=== PATIENT | male | born 2000 | race Caucasian/White ===

== ENCOUNTER 2022-09-30 19:26 | Emergency (ER) | payer OTHER, SELFPAY ==
[2022-09-30] VITALS (9 sets, daily range): BP systolic 89–122; BP diastolic 32–66; PULSE 83–165; RESP 9–28; TEMP 36.3–36.8; O2SAT 92–96; BMI 19.3
[2022-09-30 20:21] LABS: MANUAL DIFF FLAG NO
[2022-09-30 20:23] LABS: Basophils Absolute Auto 0.1 X10*3/uL (0.0-0.2); Basophils Percent Auto 0.5 % (0-2); Eosinophils Absolute Auto 0.1 X10*3/uL (0.0-0.4); Eosinophils Percent Auto 0.6 % (0-4); Hematocrit 44.6 % (42.0-52.0); Hemoglobin 14.7 g/dl (14.0-18.0); Imm Gran Abs Auto 0.34 X10*3/uL (0.00-0.03); Lymphocytes Absolute Auto 3.1 X10*3/uL (1.2-4.9); Lymphocytes Percent Auto 17.8 % (20-40); Mean Corpuscular Hemoglobin 30.2 pg (27.0-33.0); Mean Corpuscular Volume 91.6 fL (80.0-98.0); Mean Platelet Volume 10.6 fL (9.4-12.4); Monocytes Percent Auto 5.9 % (2-11); Neutrophils Absolute Auto 12.5 x10*3/uL (2.0-8.3); Neutrophils Percent Auto 73.2 % (45-73); Platelet Count 234 X10*3/uL (160-400); Red Blood Count 4.87 X10*6/uL (4.60-5.80); Red Cell Distribution Width 12.3 % (11.0-16.0); White Blood Count 17.2 X10*3/uL (4.8-10.8)
[2022-09-30] MEDS: 0.9 % Sodium Chloride 1,000 ML 999 ML IV ×3 (20:23→21:09)
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
--- NOTE | 2022-09-30 20:29 | ECG_ITS ---
Test Reason : OD Blood Pressure : / mmHG Vent. Rate : 107 BPM Atrial Rate : 107 BPM P-R Int : 162 ms QRS Dur : 094 ms QT Int : 346 ms P-R-T Axes : 079 104 062 degrees QTc Int : 461 ms Sinus tachycardia Possible Left atrial enlargement Rightward axis Incomplete right bundle branch block Borderline ECG No previous ECGs available Referred By: Generic ED Physician Electronically Signed By:Maldonado Davenport
--- NOTE | 2022-09-30 20:35 | MHC.EDTECH ---
This tech brought patients clothes to be washed.
[2022-09-30 20:40] LABS: Acetaminophen LAB < 17 mcg/mL (<30); Alanine Aminotransferase 14 U/L (0-40); Albumin Level 5.1 g/dL (3.5-5.0); Alkaline Phosphatase 121 U/L (39-117); Anion Gap 25 (12-20); Aspartate Amino Transferase 30 U/L (5-37); Bilirubin Total 0.9 mg/dL (0.0-1.0); Blood Urea Nitrogen 25 mg/dL (9-16); Calcium 10.2 mg/dL (8.4-10.2); Carbon Dioxide 14 mmol/L (22-29); Chloride 107 mmol/L (96-108); Creatinine Clr Calc Pharmacy 51.5; Estimated Glomerular Filt Rate 50; Ethanol < 10 mg/dL; Glucose Random 96 mg/dL (60-115); Potassium 4.2 mmol/L (3.3-5.1); Salicylate < 5.0 mg/dL (15-30); Sodium 142 mmol/L (135-145); Total Protein 7.8 g/dL (6.5-8.0)
[2022-09-30 20:41] LABS: COVID-19 Test Negative (Negative); IDNOW Serial# 16C4AD1C
[2022-09-30] MEDS: Haloperidol Lactate 5 MG/ML VIAL 10 MG IM (21:09)
[2022-09-30] MEDS: diphenhydrAMINE HCL 50 MG/ML VIAL IM (21:10)
[2022-09-30] MEDS: LORazepam 2 MG/ML VIAL IM (21:11)
--- NOTE | 2022-09-30 21:11 | PC.NURSE ---
pt is sleeping at this time, Blood pressure is soft, provider is aware. Fluids ordered will continue to monitor. Notified HONEY Brooks.
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
[2022-10-01 00:09] LABS: Appearance Urine Clear; Color Urine Yellow; Glucose Urine UA Negative (Negative); Leukocyte Esterase Urine Negative (Negative); Nitrite Urine Negative (Negative); PH 5.5 (5.0-9.0); Specific Gravity - Urine 1.015 (1.005-1.025); UMIC TRIGGER UACC YES; Urine Blood Negative (Negative); Urine Ketones Trace mg/dL (Negative); Urine Protein 30 (1+) mg/dL (Neg-Trace)
[2022-10-01 00:11] LABS: Bacteria Urine None Seen (None Seen); RBC Urine 0-2 /HPF (0-2); Squamous Epithelial Cell Urine 0-2 /HPF (0-2); WBC Urine 0-5 /HPF (0-5)
[2022-10-01 00:16] LABS: Amphetamine Screen Urine Not Detected (Not Detect); Barbiturates, Urine Not Detected (Not Detect); Benzodiazepines Screen Urine Not Detected (Not Detect); Cannabinoid Screen Urine POSITIVE (Not Detect); Cocaine Screen Urine POSITIVE (Not Detect); Fentanyl, urine Not Detected (Not Detect); Opiate Screen Urine Not Detected (Not Detect); Phencyclidine Screen Urine Not Detected (Not Detect)
[2022-10-01 00:28] LABS: MANUAL DIFF FLAG NO
[2022-10-01 00:30] LABS: Basophils Percent Auto 0.2 % (0-2); Eosinophils Percent Auto 0.1 % (0-4); Hematocrit 38.1 % (42.0-52.0); Imm Gran Abs Auto 0.11 X10*3/uL (0.00-0.03); Imm Gran Pct Auto 0.7 % (0.0-0.4); Lymphocytes Absolute Auto 2.6 X10*3/uL (1.2-4.9); Mean Corpuscular HGB Conc 34.1 g/dl (31.0-36.0); Mean Platelet Volume 10.6 fL (9.4-12.4); Monocytes Absolute Auto 1.3 X10*3/uL (0.1-1.2); Monocytes Percent Auto 7.8 % (2-11); Neutrophils Absolute Auto 12.3 x10*3/uL (2.0-8.3); Neutrophils Percent Auto 75.2 % (45-73); Platelet Count 193 X10*3/uL (160-400); Red Blood Count 4.33 X10*6/uL (4.60-5.80); Red Cell Distribution Width 12.5 % (11.0-16.0); White Blood Count 16.3 X10*3/uL (4.8-10.8)
--- NOTE | 2022-10-01 00:45 | MHC.CARE ---
Consult requested by ED Provider due to Patient PCP use. Care Team met with Patient. Patient declined all services and Recovery supports.
[2022-10-01 01:01] LABS: Creatinine Clr Calc Pharmacy 75.5; Estimated Glomerular Filt Rate > 60
[2022-10-01 06:08] VITALS: BP 107/59; PULSE 80; RESP 17; O2SAT 95
--- NOTE | 2022-10-01 06:33 | PC.NURSE ---
Pt 's is leavening against medical advised and refused any further interventions. Pt's was a/o x4, and denies being SI and HI.
== END 2022-10-01 06:33 | disposition left against medical advice (07) ==
PROVIDERS: Physician Assistant; Emergency Provider Internal Medicine; PCP Nurse Practitioner Family
DX: F19.10 Other psychoactive substance abuse, uncomplicated (principal); R45.6 Violent behavior; R45.1 Restlessness and agitation; N17.9 Acute kidney failure, unspecified; M62.82 Rhabdomyolysis; F12.90 Cannabis use, unspecified, uncomplicated; Z78.1 Physical restraint status; Z20.822 Contact with and (suspected) exposure to COVID-19
CPT/HCPCS: 36415; 80053; 80143; 80179; 80307; 81001; 81003; 82077; 82550; 82565; 85025; 87635; 93005; 96360; 96361; 96372; 99285; J1200; J2060

== ENCOUNTER 2023-09-19 02:12 | Emergency (ER) | payer OTHER, SELFPAY ==
--- NOTE | ~2023-09-19 | CT_ITS ---
EXAMINATION: CT HEAD WITHOUT CONTRAST CT CERVICAL SPINE WITHOUT CONTRAST CLINICAL INFORMATION: EtOH. Altered mental status. Evaluate for fracture, hemorrhage. COMPARISON: None TECHNIQUE: Contiguous axial imaging was performed from the skull base to vertex without intravenous administration of contrast. Contiguous axial CT images of the cervical spine were obtained without contrast. Sagittal and coronal reformats were provided and reviewed. This CT examination was performed using dose optimization techniques as appropriate, variously including the following: *Automated exposure control *Adjustment of mA and/or kV according to patient size (this includes techniques or standardized protocols for targeted exams where dose is matched to indication/reason for exam; i.e. extremities or head) *Use of iterative reconstruction technique DLP: 1039 mGy-cm FINDINGS: HEAD: There is no evidence of acute intracranial hemorrhage or territorial infarction. No abnormal mass effect or midline shift is seen. Lamb to white matter differentiation is well preserved. No extra-axial fluid collections are identified. The ventricles are normal in size. There is no abnormal attenuation within the brain parenchyma. The osseous structures and soft tissues are normal. The mastoid air cells and visualized portions of the paranasal sinuses are well aerated. CERVICAL SPINE: Normal vertebral body alignment. The normal cervical lordosis is maintained. No acute fracture or subluxation. No loss of vertebral body or intervertebral disc height. Unremarkable facet joints. No lytic or blastic osseous lesion. Unremarkable prevertebral soft tissues. No abnormal soft tissue mass or fluid collection. Thyroid within normal limits. Visualized lung apices are clear. No significant central canal or neural foraminal stenosis. CT/CT cervical spine wo IV con IMPRESSION: HEAD: No acute intracranial hemorrhage or mass effect. CERVICAL SPINE: No acute fracture or subluxation.
[2023-09-19 02:21] VITALS: BP 160/100; PULSE 113; O2SAT 96; BMI 24.2
--- NOTE | 2023-09-19 02:26 | ECG_ITS ---
Test Reason : ETOH Blood Pressure : / mmHG Vent. Rate : 119 BPM Atrial Rate : 119 BPM P-R Int : 164 ms QRS Dur : 096 ms QT Int : 330 ms P-R-T Axes : 071 102 049 degrees QTc Int : 464 ms Sinus tachycardia Rightward axis Borderline ECG No previous ECGs available Referred By: Generic ED Physician Electronically Signed By:
[2023-09-19 02:31] LABS: Glucose, Whole Blood 107 mg/dL (60-115)
[2023-09-19 02:33] VITALS: BP 144/89; PULSE 110; RESP 16; TEMP 36.3; O2SAT 96
[2023-09-19 03:09] LABS: Appearance Urine Clear; Color Urine Yellow; Glucose Urine UA Negative (Negative); Leukocyte Esterase Urine Negative (Negative); Nitrite Urine Negative (Negative); Specific Gravity - Urine <= 1.005 (1.005-1.025); Urine Blood Negative (Negative); Urine Ketones Negative (Negative); Urine Protein Negative (Neg-Trace)
[2023-09-19 03:14] LABS: Amphetamine Screen Urine Not Detected (Not Detect); Barbiturates, Urine Not Detected (Not Detect); Benzodiazepines Screen Urine Not Detected (Not Detect); Cannabinoid Screen Urine POSITIVE (Not Detect); Cocaine Screen Urine POSITIVE (Not Detect); Fentanyl, urine Not Detected (Not Detect); Opiate Screen Urine Not Detected (Not Detect); Phencyclidine Screen Urine Not Detected (Not Detect)
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
[2023-09-19] MEDS: OLANZapine 10 MG TABLET PO (03:39)
[2023-09-19] MEDS: diphenhydrAMINE HCL 25 MG CAPSULE 50 MG PO (03:39)
--- NOTE | 2023-09-19 03:46 | PC.NURSE ---
Pt restless unable to sit still. Attempting to get out of bed and ambulate with unsteady gait. Not easily redirectable. 1:1 sitter at bedside. made aware.
[2023-09-19 04:56] LABS: Basophils Percent Auto 0.3 % (0-2); Hematocrit 44.9 % (42.0-52.0); Hemoglobin 15.3 g/dl (14.0-18.0); Imm Gran Abs Auto 0.03 X10*3/uL (0.00-0.03); Imm Gran Pct Auto 0.3 % (0.0-0.4); Lymphocytes Absolute Auto 2.2 X10*3/uL (1.2-4.9); Lymphocytes Percent Auto 22.2 % (20-40); MANUAL DIFF FLAG NO; Mean Corpuscular HGB Conc 34.1 g/dl (31.0-36.0); Mean Corpuscular Hemoglobin 29.8 pg (27.0-33.0); Mean Corpuscular Volume 87.5 fL (80.0-98.0); Monocytes Absolute Auto 0.5 X10*3/uL (0.1-1.2); Monocytes Percent Auto 5.2 % (2-11); Neutrophils Absolute Auto 7.2 x10*3/uL (2.0-8.3); Platelet Count 240 X10*3/uL (160-400); Red Blood Count 5.13 X10*6/uL (4.60-5.80); Red Cell Distribution Width 12.5 % (11.0-16.0); White Blood Count 9.9 X10*3/uL (4.8-10.8)
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
[2023-09-19 05:02] VITALS: RESP 14
[2023-09-19 05:11] LABS: Alanine Aminotransferase 21 U/L (0-40); Albumin Level 4.9 g/dL (3.5-5.0); Alkaline Phosphatase 87 U/L (39-117); Anion Gap 15 (12-20); Aspartate Amino Transferase 33 U/L (5-37); Bilirubin Total 1.4 mg/dL (0.0-1.0); Blood Urea Nitrogen 10 mg/dL (9-16); Calcium 9.3 mg/dL (8.4-10.2); Carbon Dioxide 25 mmol/L (22-29); Chloride 114 mmol/L (96-108); Creatinine Clr Calc Pharmacy 122.7; Estimated Glomerular Filt Rate > 60; Ethanol 310 mg/dL; Glucose Random 111 mg/dL (60-115); Potassium 3.7 mmol/L (3.3-5.1); Sodium 150 mmol/L (135-145); Total Protein 7.7 g/dL (6.5-8.0)
[2023-09-19 05:25] VITALS: BP 103/53; PULSE 86; RESP 17; TEMP 36.8; O2SAT 93
[2023-09-19 07:54] VITALS: BP 104/54; PULSE 80; RESP 18; O2SAT 98
[2023-09-19] MEDS: Lactated Ringers 1,000 ML 999 ML IV (08:07)
--- NOTE | 2023-09-19 10:02 | PC.NURSE ---
pt sleeping with family at bedside, he repositions himself occasionally, resp are non labored
--- NOTE | 2023-09-19 10:41 | MHC.RECOVSUP ---
Met with pt in ED22H who is here for ETOH. Pt denies having used any substances or needing assistance with ETOH and that he would just like to go home. PT was provided recovery resources and told to reach out if he does need help. At this time pt does not want recovery support and is ready to go home. Provider aware.
[2023-09-19] MEDS: Lidocaine HCl 1%/Epi 1:100,000 10 ML VIAL INFILTRATI (11:13)
--- NOTE | 2023-09-19 11:15 | PC.NURSE ---
MD AT THE BEDSIDE TO SUTURE CHIN LACERATION. PT IS MUCH MORE ALERT AND INTERACTIVE
[2023-09-19] MEDS: Acetaminophen 325 MG TABLET 975 MG PO (11:57)
[2023-09-19] MEDS: Ibuprofen 600 MG TABLET PO (11:58)
== END 2023-09-19 11:59 | disposition home or self-care (01) ==
PROVIDERS: Emergency Medicine Emergency Medical Services; Emergency Provider Emergency Medicine
DX: F14.988 Cocaine use, unspecified with other cocaine-induced disorder (principal); F10.920 Alcohol use, unspecified with intoxication, uncomplicated; Y90.8 Blood alcohol level of 240 mg/100 ml or more; S01.81XA Laceration without foreign body of other part of head, initial encounter; W13.4XXA Fall from, out of or through window, initial encounter; R45.1 Restlessness and agitation; Y93.9 Activity, unspecified; Y92.9 Unspecified place or not applicable; Y99.9 Unspecified external cause status
CPT/HCPCS: 12013; 36415; 70450; 72125; 80053; 80307; 81003; 82550; 82947; 85025; 93005; 96360; 99284; 99285; J7120

== ENCOUNTER 2023-09-29 21:21 | Emergency (ER) | payer OTHER, SELFPAY ==
[2023-09-29 21:33] VITALS: BP 120/73; PULSE 66; RESP 18; TEMP 36.5; O2SAT 97; BMI 22.0
[2023-09-29 22:59] VITALS: BP 96/65; PULSE 57; RESP 16; TEMP 36.7; O2SAT 98
--- NOTE | 2023-09-29 23:06 | MHC.EDTECH ---
RN aware that bp on upper left was 83/54, on upper right the bp was 96/65, RN aware of both
--- NOTE | 2023-09-29 23:37 | ED.GENADULT ---
HPI - General Adult General Chief complaint: General Medical Stated complaint: suture removal Time Seen by Provider: 09/29/23 23:01 Source: patient Mode of arrival: ambulatory History of Present Illness HPI narrative: 23M requesting suture removal but states he has already removed 4. Related Data Allergies Allergy/AdvReac Type Severity Reaction Status Date / Time mayonnaise [MAYONNAISE] Allergy Unknown LIPS SWELL Verified 09/29/23 21:35 mayonaisse Allergy Unknown edema Uncoded 12/31/19 00:00 Review of Systems Review of Systems: Pertinent positives and negatives as stated in [facility] Past Medical History Source: nursing notes reviewed Onset Date is defined in the Problem List Problems that require an onset date and time if occurred within 24 hrs of arrival to the ED Aortic Dissection and Rupture; Neurologic impairment; Cardiopulmonary Arrest; Endotracheal Intubation; Insertion or Replacement of Mechanical Circulatory Assist Device Social History Social History Alcohol intake: unknown Substance Use Type: Marijuana Advance Directives: No Advance Directives Information Provided: Yes Physical Exam ED Vital Signs: Vital Signs - 24 hr 09/29/23 21:33 09/29/23 22:59 Temperature 97.7 F 98.0 F Pulse Rate 66 57 Respiratory Rate 18 16 Blood Pressure 120/73 96/65 Pulse Oximetry 97 98 Oxygen Delivery Method Room Air Room Air BMI result Body Mass Index 22.0 VITAL SIGNS: Reviewed. GENERAL: Well developed, well nourished, in no acute distress. HEAD: Normocephalic/atraumatic EYES: PERRLA, EOMI LUNGS: Normal breath sounds. No adventitious sounds or accessory muscle use. SpO2<98> CARDIOVASCULAR: Regular rate and rhythm without noted murmurs ABDOMEN: Soft, non-tender, non-distended with bowel sounds. Under chin-no sutures available for removal, all removed by the patient NEUROLOGIC: Alert and oriented x 4. Strength and sensation to light touch were grossly intact x 4. Medical Decision Making Medical Decision Making [facility] Narrative: Patient had removed all sutures, no evidence of infection. Differential Diagnosis Differential Diagnoses: The differential diagnosis associated with the presentation includes Admission/Observation Consideration of admission/observation: Escalation of care including admission/observation considered Discharge Plan Discharge Clinical Impression: Visit for suture removal Patient Disposition: Home, Self-Care Instructions: Stitches Removal (ED) Additional Instructions: Return to the ED for any worsening symptoms. Interventions: ED Discharge Assessment Last Done: 09/29/23 23:42 Discharge Date/Time: 09/29/23 23:42
== END 2023-09-29 23:42 | disposition home or self-care (01) ==
PROVIDERS: Emergency Provider Student in an Organized Health Care Education/Training Program
DX: Z48.02 Encounter for removal of sutures (principal)
CPT/HCPCS: 99283

== ENCOUNTER 2024-09-25 07:42 | Emergency (ER) | payer OTHER, SELFPAY ==
[2024-09-25 07:48] VITALS: BP 126/84; PULSE 113; RESP 18; TEMP 37.9; O2SAT 95; BMI 22.5
--- NOTE | 2024-09-25 08:21 | ED_ITS ---
HPI - General Adult General Chief complaint: Upper Respiratory Symptoms Stated complaint: Sore throat, fever Time Seen by Provider: 09/25/24 08:20 Source: patient Mode of arrival: ambulatory Limitations: no limitations History of Present Illness HPI narrative: 24 years old man who presented to the ED with a chief complaint of sore throat x2 days. He states that his daughter as strep throat Onset (ago): day(s) (2) Radiation: non-radiation Severity: moderate Pain Consistency: constant Relieving factors: none Exacerbating factors: none Associated symptoms: denies other symptoms Related Data Previous Rx's ?Medication ?Instructions ?Recorded amoxicillin 500 mg capsule 500 mg PO TID #30 caps 09/25/24 ibuprofen 800 mg tablet 800 mg PO Q8H PRN pain #20 tabs 09/25/24 Allergies Allergy/AdvReac Type Severity Reaction Status Date / Time mayonnaise [MAYONNAISE] Allergy Unknown LIPS SWELL Verified 09/25/24 07:50 mayonaisse Allergy Unknown edema Uncoded 12/31/19 00:00 Review of Systems Constitutional: Constitutional: Reports no additional constitutional complaints ENT: Denies change in voice Cardiovascular: Cardiovascular: Reports no additional cardiovascular complaints [facility] Past Medical History Attestation statement: The following information was validated with the patient. Social History Social History Alcohol intake: unknown Substance Use Type: Marijuana Advance Directives: No Advance Directives Information Provided: Yes Physical Exam ED Vital Signs: Vital Signs - 24 hr 09/25/24 07:48 Temperature 100.2 F Pulse Rate 113 H Respiratory Rate 18 Blood Pressure 126/84 Pulse Oximetry 95 Oxygen Delivery Method Room Air BMI result Body Mass Index 22.5 Const General: cooperative, comfortable and no acute distress Nutritional Appearance: average body habitus Orientation/consciousness: patient oriented x3 Limitations: no limitations HENMT Head: Yes normal to inspection Ears: hearing grossly normal bilaterally General nose exam: Normal external nose present Face and sinus: Yes normal facial exam Mouth: Normal oral and palatal mucosa present Throat: Yes abnormal tonsil (Swelling of the tonsil left more than right) Neck Neck: Yes normal visual inspection Resp Effort & Inspection: normal respiratory effort Auscultation: clear to auscultation bilaterally Cardio Jugular venous distension: no JVD Rate: regular rate Rhythm: regular rhythm GI Inspection: Yes normal to inspection Palpation (GI): Soft to palpation, not firm and nontender Auscultation: normal bowel sounds Skin General skin exam: no rashes or lesions noted Lesions: no lesions Rashes: no rashes Neuro General: patient oriented x3 Course Reevaluation(s) Reevaluation #1: strep POS and flu POS will d/c on po ab Time: 09:17 Medications Administered Discontinued Medications Generic Name Dose Route Start Last Admin Trade Name Freq PRN Reason Stop Dose Admin Acetaminophen 650 mg 09/25/24 08:20 09/25/24 08:27 Acetaminophen 325 Mg Tablet PO 09/25/24 08:21 650 mg ONCE ONE Administration Dexamethasone 10 mg 09/25/24 08:45 09/25/24 09:13 Dexamethasone 2 Mg Tablet PO 09/25/24 08:46 10 mg ONCE ONE Administration Medical Decision Making Medical Decision Making [facility] Narrative: Patient presented with sore throat we will obtain strep test Differential Diagnosis Differential Diagnoses: The differential diagnosis associated with the presentation includes Viral pharyngitis /strep pharyngitis Admission/Observation Consideration of admission/observation: Escalation of care including admission/observation considered Lab Data [facility] Lab Attestation statement: I reviewed the patient's lab results. Labs: Lab Results 09/25/24 Range/Units 08:25 Influenza Type A (PCR) POSITIVE A (Negative) Influenza Type B (PCR) NEGATIVE (Negative) RSV RNA Qual (PCR) NEGATIVE (Negative) SARS-CoV-2 RNA (RT-PCR) NEGATIVE (Negative) S. pyogenes GrpA MECHE Positive A (Negative) Discharge Plan Discharge Clinical Impression: Influenza, Strep pharyngitis Patient Disposition: Home, Self-Care Instructions: Strep Throat (DC), Influenza (DC) Prescriptions: New amoxicillin 500 mg capsule 500 mg PO TID Qty: 30 0RF ibuprofen 800 mg tablet 800 mg PO Q8H PRN (Reason: pain) Qty: 20 0RF Referrals: Physician,Unknown J [Primary Care Provider] - 3 days Stand Alone Forms: Work/School Release Print Language: Ukrainian
[2024-09-25] MEDS: Acetaminophen 325 MG TABLET 650 MG PO (08:27)
[2024-09-25 08:51] LABS: IDNOW Serial# 58CA691E; Strep A Nucleic Acid Positive (Negative)
[2024-09-25 09:11] LABS: Influenza A PCR POSITIVE (Negative); Influenza B PCR NEGATIVE (Negative); Resp Syncy Virus RNA Qual PCR NEGATIVE (Negative); SARS COV2 PCR INHOUSE NEGATIVE (Negative)
[2024-09-25] MEDS: dexAMETHasone 2 MG TABLET 10 MG PO (09:13)
--- NOTE | 2024-09-25 09:14 | PC.NURSE ---
swabs obtained prior to this nurse taking over patient care, pt was medicated per order
[2024-09-25 09:29] VITALS: BP 121/78; PULSE 108; RESP 16; TEMP 37.7; O2SAT 96
== END 2024-09-25 09:31 | disposition home or self-care (01) ==
PROVIDERS: Emergency Provider Emergency Medicine
DX: J10.1 Influenza due to other identified influenza virus with other respiratory manifestations (principal); J02.0 Streptococcal pharyngitis; R50.9 Fever, unspecified; Z03.818 Encounter for observation for suspected exposure to other biological agents ruled out
CPT/HCPCS: 0241U; 87651; 99283; J8540

== ENCOUNTER → 2025-05-19 01:08 | Outpatient (BNV) | payer OTHER, SELFPAY | PROVIDERS: Visit Provider Radiology Diagnostic Radiology | DX: R07.9 Chest pain, unspecified (principal) | CPT/HCPCS: 71045 ==

== ENCOUNTER 2025-05-19 01:39 | Emergency (ER) | payer OTHER, SELFPAY ==
--- NOTE | 2025-05-19 | ECG_ITS ---
Test Reason : CP Blood Pressure : */* mmHG Vent. Rate : 97 BPM Atrial Rate : 97 BPM P-R Int : 164 ms QRS Dur : 90 ms QT Int : 350 ms P-R-T Axes : 75 92 57 degrees QTcB Int : 444 ms Normal sinus rhythm Rightward axis Borderline ECG When compared with ECG of 30-Sep-2022 20:15, No significant change was found Referred By: Generic ED Physician Electronically Signed By: ERIC WATKINS
--- NOTE | ~2025-05-19 | XR_ITS ---
CLINICAL HISTORY: chest pain 1 view chest x-ray. Comparison: None provided. Findings: No consolidation, pneumothorax, or effusion. Heart size normal. Impression: 1. No acute cardiopulmonary process. No focal pulmonary consolidation. This document has been electronically signed by: Avinash Patrick MD on 05/19/2025 02:27:42
[2025-05-19 01:53] VITALS: BP 128/77; BP 132/80; PULSE 101; PULSE 138; RESP 16; TEMP 36.8; O2SAT 94; O2SAT 95; BMI 22.0
[2025-05-19 02:21] LABS: Hematocrit 45.5 % (42.0-52.0); Hemoglobin 16.0 g/dl (14.0-18.0); Imm Gran Abs Auto 0.37 X10*3/uL (0.00-0.03); Imm Gran Pct Auto 1.5 % (0.0-0.4); Lymphocytes Absolute Auto 1.3 X10*3/uL (1.2-4.9); MANUAL DIFF FLAG SCAN; Mean Corpuscular HGB Conc 35.2 g/dl (31.0-36.0); Mean Corpuscular Hemoglobin 30.5 pg (27.0-33.0); Mean Corpuscular Volume 86.7 fL (80.0-98.0); NRBC Abs Auto 0.000 X10*3/uL (0.0-0.012); NRBC Pct Auto 0.0 /100WBC (0.0-0.2); Platelet Count 246 X10*3/uL (160-400); Red Blood Count 5.25 X10*6/uL (4.60-5.80); SCAN SMEAR FLAG 1; White Blood Count 25.3 X10*3/uL (4.8-10.8)
--- NOTE | 2025-05-19 02:24 | PC.NURSE ---
pt changed over into hospital gown, placed on order checker packer processer, IV placed and labs sent to lab pending results
--- NOTE | 2025-05-19 02:37 | PC.NURSE ---
pt CBC showed WBC count of 25.3 provider Melinda made aware, all other VS sable pending further results from lab
[2025-05-19 02:42] LABS: Alanine Aminotransferase 19 U/L (0-40); Albumin Level 5.2 g/dL (3.5-5.0); Alkaline Phosphatase 102 U/L (39-117); Anion Gap 21 (12-20); Aspartate Amino Transferase 35 U/L (5-37); Blood Urea Nitrogen 12 mg/dL (9-16); Calcium 9.1 mg/dL (8.4-10.2); Carbon Dioxide 18 mmol/L (22-29); Chloride 106 mmol/L (96-108); Creatinine Clr Calc Pharmacy 78.7; Estimated Glomerular Filt Rate > 60; Potassium 3.8 mmol/L (3.3-5.1); Sodium 141 mmol/L (135-145); Total Protein 8.1 g/dL (6.5-8.0)
[2025-05-19 02:49] LABS: Troponin-I High Sensitivity 3.0 ng/L (<3.5-35.0)
[2025-05-19 04:47] VITALS: BP 114/65; PULSE 82; RESP 18; O2SAT 96
--- NOTE | 2025-05-19 04:55 | ED.CHESTPAIN ---
HPI - Chest Pain General Chief Complaint: Chest Pain Stated Complaint: COCAINE/ETOH/CHEST PAIN Time Seen by Provider: 05/19/25 04:55 Source: patient, EMS and police Mode of arrival: EMS Limitations: altered mental status (intoxicated) History of Present Illness ED Provider: Dr. Bertha Olea HPI narrative: 24-year-old male with history of substance use and alcohol use presenting via police custody with reports of chest pain. Admits he was using cocaine and alcohol earlier today and was afraid it might be wheeze. He begins to act aggressively and was taken into police custody. He is brought to the emergency department for evaluation of this chest discomfort. Admits that he was snorting cocaine. Denies intravenous drug use. Describes sharp stabbing pain in the center of his chest that is worse with inhalation. Denies other illicit substance use. Denies history of alcohol withdrawal. Denies fevers, sputum production, nausea or vomiting, known sick contacts or travel. Related Data Previous Rx's ?Medication ?Instructions ?Recorded amoxicillin 500 mg capsule 500 mg PO TID #30 caps 09/25/24 ibuprofen 800 mg tablet 800 mg PO Q8H PRN pain #20 tabs 09/25/24 Allergies Allergy/AdvReac Type Severity Reaction Status Date / Time mayonnaise (MAYONNAISE) Allergy Unknown LIPS SWELL Verified 05/19/25 01:59 [email or web address] Allergy Unknown edema Uncoded 05/19/25 01:59 Review of Systems Review of Systems: as per HPI, full review of systems performed and negative but for the above mentioned pertinent positives and negatives. [facility] Social History Social History Alcohol intake: current Alcohol intake frequency: a few times a month Alcohol type: hard liquor Smoked in Last 30 Days: Yes Use of substances other than those prescribed or required for medical reasons: Yes Substance Use Type: Crack/Cocaine and Marijuana Substance Use Frequency: Occasionally Last Used Substance: Hours (ago) Advance Directives: No Physical Exam Exam: Exam: GENERAL: Anxious, tearful. SKIN: Normal skin color for ethnicity, warm, dry, intact, no rashes noted. HEENT: Normocephalic, atraumatic, no stridor, posterior oropharynx nonerythematous, dentition intact, EOMI. NECK: Soft, supple, full ROM, midline structures nontender, no step-offs, no deformities, no lymphadenopathy. CHEST: Heart regular tachycardia, no murmurs, symmetric chest rise and fall, no crepitus. PULMONARY: Clear to auscultation bilaterally, no labored breathing, no wheezes/rhales/ rhonchi. ABDOMINAL: Soft, nondistended, nontender, positive bowel sounds in all quadrants. : Deferred. MUSCULOSKELETAL: Normal tone, full range of motion, no deformities, no peripheral edema. NEURO: Alert and oriented x3, CN II through XII intact, equal strength and sensation bilateral upper and lower extremities, no focal neurologic deficits. PSYCHIATRIC: Anxious affect, tearful, fluid speech, good eye contact and appropriate demeanor. Vital Signs: Vital Signs: Last Vital Signs Temp 98.5 F 05/19/25 05:14 Pulse 82 05/19/25 05:14 Resp 18 05/19/25 05:14 BP 114/65 05/19/25 05:14 Pulse Ox 96 05/19/25 05:14 O2 Del Method Room Air 05/19/25 05:14 BMI result Body Mass Index 22.0 Medical Decision Making Medical Decision Making [facility] Narrative: Patient presents today with a chief complaint of chest pain in the setting of cocaine use and alcohol intoxication tonight. Differential diagnosis includes, but is not limited to, acute coronary syndrome, musculoskeletal pain, pneumothorax, GERD, pleurisy, pulmonary embolism, dissection, among others. I will order EKG, chest x-ray, the laboratory workup including cardiac enzymes to further evaluate for etiology. Work up is reassuring. No evidence of ACS though we had an extensive discussion about mixing alcohol and cocaine and the toxic metabolite that is formed with the two. Using shared decision making, plan for discharge home to follow-up with primary care and/or specialist.? Patient understands and agrees with plan for discharge.? Discharged home in stable condition. Differential Diagnosis Differential Diagnoses: The differential diagnosis associated with the presentation includes (as above) Admission/Observation Consideration of admission/observation: Escalation of care including admission/observation considered Lab Data [facility] Lab Attestation statement: I reviewed the patient's lab results. 05/19/25 02:17 05/19/25 02:17 Labs: Lab Results 05/19/25 Range/Units 02:17 WBC 25.3 H (4.8-10.8) X10*3/uL RBC 5.25 (4.60-5.80) X10*6/uL Hgb 16.0 (14.0-18.0) g/dl Hct 45.5 (42.0-52.0) % MCV 86.7 (80.0-98.0) fL MCH 30.5 (27.0-33.0) pg MCHC 35.2 (31.0-36.0) g/dl RDW 12.9 (11.0-16.0) % Plt Count 246 (160-400) X10*3/uL MPV 9.9 (9.4-12.4) fL Immature Gran % (Auto) 1.5 H (0.0-0.4) % Neut % (Auto) 85.5 H (45-73) % Lymph % (Auto) 5.0 L (20-40) % [place] % (Auto) 7.7 (2-11) % Eos % (Auto) 0.1 (0-4) % Baso % (Auto) 0.2 (0-2) % Lymph # (Auto) 1.3 (1.2-4.9) X10*3/uL [place] # (Auto) 1.9 H (0.1-1.2) X10*3/uL Eos # (Auto) 0.0 (0.0-0.4) X10*3/uL Baso # (Auto) 0.1 (0.0-0.2) X10*3/uL Abs Immat Gran (auto) 0.37 H (0.00-0.03) X10*3/uL Absolute Neuts (auto) 21.6 H (2.0-8.3) x10*3/uL Absolute Nucleated RBC 0.000 (0.0-0.012) X10*3/uL Nucleated RBC % (auto) 0.0 (0.0-0.2) /100WBC Smear Tech's Comments VERIFIED Sodium 141 (135-145) mmol/L Potassium 3.8 (3.3-5.1) mmol/L Chloride 106 (96-108) mmol/L Carbon Dioxide 18 L (22-29) mmol/L Anion Gap 21 H (12-20) BUN 12 (9-16) mg/dL Creatinine 1.28 (0.5-1.4) mg/dL Estim Creat Clear Calc 78.7 Estimated GFR > 60 Random Glucose 104 (60-115) mg/dL Calcium 9.1 (8.4-10.2) mg/dL Total Bilirubin 1.7 H (0.0-1.0) mg/dL AST 35 (5-37) U/L ALT 19 (0-40) U/L Alkaline Phosphatase 102 (39-117) U/L Troponin I High Sens 3.0 (<3.5-35.0) ng/L Total Protein 8.1 H (6.5-8.0) g/dL Albumin 5.2 H (3.5-5.0) g/dL Ethyl Alcohol 96 mg/dL Independent Interpretation I performed an independent interpretation of an: EKG and Plain X-Ray Radiology Impression Discussion of test interpretation with radiology: I have reviewed the radiologist's reading. Independent Historian Clinical information obtained from an independent historian. History obtained from or confirmed by: EMS and Other (police) Chronic Conditions Patient?s care impacted by: Other (substance use) Social Determinants Patient?s care significantly limited by Social Determinants of Health including: Problems related to primary support group Scores Heart Score History: -0- slightly suspicious ECG: -0- normal Age: -0- < or = 45 Risk factory: -0- no risk factors known Troponin: -0- < or = normal limit Score: 0 Risk: 1.7% Discharge Plan Discharge Clinical Impression: Chest pain, Cocaine use Patient Disposition: Home, Self-Care Instructions: Chest Pain (ED), Cocaine Use Disorder (ED) Additional Instructions: Do not mix cocaine and alcohol. The 2 together can be dangerous to your heart. Return to the emergency department immediately with any new or worsening symptoms including: Fevers greater than 100?, worsening chest pain, difficulty breathing, bloody sputum, any new symptom that concerns you. Call 911 with any medical emergency. Prescriptions: No Action amoxicillin 500 mg capsule 500 mg PO TID Qty: 30 0RF ibuprofen 800 mg tablet 800 mg PO Q8H PRN (Reason: pain) Qty: 20 0RF Interventions: ED Discharge Assessment Last Done: 05/19/25 05:14 Discharge Date/Time: 05/19/25 05:15 Print Language: Dominican
[2025-05-19 05:14] VITALS: BP 114/65; PULSE 82; RESP 18; TEMP 36.9; O2SAT 96
== END 2025-05-19 05:15 | disposition home or self-care (01) ==
PROVIDERS: Emergency Provider Emergency Medicine
DX: R07.89 Other chest pain (principal); F14.90 Cocaine use, unspecified, uncomplicated; Z51.81 Encounter for therapeutic drug level monitoring; Z79.899 Other long term (current) drug therapy
CPT/HCPCS: 36415; 71045; 80053; 80307; 84484; 85025; 93005; 99283; 99285

== ENCOUNTER → 2025-05-19 01:50 | Outpatient (BNV) | payer OTHER, SELFPAY | PROVIDERS: Emergency Provider Emergency Medicine; Visit Provider Internal Medicine | DX: R07.9 Chest pain, unspecified (principal) | CPT/HCPCS: 93010 ==